=== PATIENT | male | born 1970 | race Caucasian/White ===

== ENCOUNTER 2018-06-14 16:03 | Inpatient (IN) | payer MEDICAID ==
[2018-06-14 17:15] LABS: ADD MAN DIFF? NO
[2018-06-14 17:18] LABS: WHITE BLOOD COUNT 6.3 10^3/ul (4.8-10.8)
[2018-06-14 17:18] LABS: ABNORMAL IP MESSAGE 1; BASOPHIL # 0.1 10^3/ul (0.0-0.1); EOSINOPHILS # 0.1 10^3/ul (0.0-0.5); EOSINOPHILS % 1.1 % (0.0-7.0); HEMATOCRIT 30.5 % (42.0-52.0); HEMOGLOBIN 10.4 g/dl (14.0-18.0); IMMATURE GRANS #M 0.02 10^3/ul; IMMATURE GRANS % (M) 0.3 %; LYMPHOCYTES # 0.5 10^3/ul (0.8-2.9); LYMPHOCYTES % 7.5 % (15.0-51.0); MEAN CORPUSCULAR HGB CONC 34.1 g/dl (32.0-37.0); MEAN PLATELET VOLUME 9.7 fl (7.4-10.4); MONOCYTE # 0.5 10^3/ul (0.3-0.9); MONOCYTES % 7.3 % (0.0-11.0); NEUTROPHIL # 5.2 10^3/ul (1.6-7.5); NEUTROPHILS % 82.8 % (39.0-77.0); PLATELET COUNT 212 10^3/UL (140-415); POSITIVE DIFF @See below; RED BLOOD COUNT 3.59 10^6/ul (4.70-6.10); RED CELL DISTRIBUTION WIDTH 13.5 % (11.5-14.5)
[2018-06-14] MEDS: ONDANSETRON 4 MG INJ IV (17:18)
[2018-06-14] MEDS: morphine 4 MG/ML VIAL IV (17:18)
[2018-06-14] MEDS: SOD CHLORIDE 0.9% 1,000 ML IV (17:18)
[2018-06-14] MEDS: DIPHTH/TET/ACEL PERTUSS (ADULT) 0.5 ML VIAL IM* (17:19)
[2018-06-14 17:36] LABS: ALANINE AMINOTRANSFERASE 21 IU/L (13-69); ALBUMIN 3.4 g/dl (3.3-4.9); ALBUMIN/GLOBULIN RATIO 1.17; ALKALINE PHOSPHATASE 144 IU/L (42-121); ANION GAP 13 (8-16); ASPARTATE AMINO TRANSFERASE 27 IU/L (15-46); BLOOD UREA NITROGEN 21 mg/dl (7-20); CALCIUM 8.6 mg/dl (8.4-10.2); CARBON DIOXIDE 25 mmol/L (21-31); CHLORIDE 107 mmol/L (97-110); CREATINE KINASE 189 IU/L (23-200); CREATININE 0.94 mg/dl (0.61-1.24); GLUCOSE 103 mg/dl (70-220); POTASSIUM 4.2 mmol/L (3.5-5.1); SODIUM 141 mmol/L (135-144); TOTAL PROTEIN 6.3 g/dl (6.1-8.1)
[2018-06-14 17:38] LABS: INR 0.97
[2018-06-14 17:39] LABS: PARTIAL THROMBOPLASTIN TIME 25.8 Sec (25.0-35.0)
[2018-06-14 17:47] LABS: B-TYPE NATRIURETIC PEPTIDE 279 PG/ML (0-125); CK INDEX 0.9; CK-MB 1.61 ng/ml (0.0-2.4); TROPONIN-I 0.051 ng/ml (0.000-0.120)
[2018-06-14] MEDS: LIDOCAINE 2%/EPI MPF (SDV) 20 ML VIAL INJ (17:54)
[2018-06-14] MEDS ORDERED: ACETAMINOPHEN 325 MG TAB PO (20:00)
[2018-06-14] MEDS ORDERED: ONDANSETRON 4 MG INJ IV (20:00)
[2018-06-15] MEDS ORDERED: ONDANSETRON 4 MG INJ IV (00:30)
[2018-06-15] MEDS ORDERED: GLUCOSE GEL 15 GRAM TUBE BUCCAL (00:30)
[2018-06-15] MEDS ORDERED: GLUCOSE GEL 15 GRAM TUBE PO ×2 (00:30)
[2018-06-15] MEDS ORDERED: GLUCAGON 1 MG INJ IM (00:30)
[2018-06-15] MEDS ORDERED: DEXTROSE 50% 50 ML SYRINGE IV ×2 (00:30)
[2018-06-15] MEDS: HYDROCODONE/APAP (5/325) TAB PO ×3 (00:38→17:27)
[2018-06-15] MEDS: ACETAMINOPHEN 325 MG TAB PO ×2 (00:39→20:36)
[2018-06-15] MEDS: ACCU-CHEK XX (01:34)
[2018-06-15] MEDS: SOD CHLORIDE 0.9% 250 ML IV (05:20)
[2018-06-15 07:24] LABS: ADD MAN DIFF? NO
[2018-06-15 07:26] LABS: WHITE BLOOD COUNT 4.8 10^3/ul (4.8-10.8)
[2018-06-15 07:26] LABS: BASOPHIL # 0.1 10^3/ul (0.0-0.1); BASOPHILS % 1.7 % (0.0-2.0); EOSINOPHILS # 0.1 10^3/ul (0.0-0.5); EOSINOPHILS % 2.5 % (0.0-7.0); HEMATOCRIT 28.1 % (42.0-52.0); LYMPHOCYTES # 0.9 10^3/ul (0.8-2.9); LYMPHOCYTES % 19.3 % (15.0-51.0); MEAN CORPUSCULAR HEMOGLOBIN 27.6 pg (29.0-33.0); MEAN CORPUSCULAR VOLUME 86.2 fl (82.0-101.0); MEAN PLATELET VOLUME 10.2 fl (7.4-10.4); MONOCYTE # 0.3 10^3/ul (0.3-0.9); MONOCYTES % 6.4 % (0.0-11.0); NEUTROPHIL # 3.4 10^3/ul (1.6-7.5); NEUTROPHILS % 69.7 % (39.0-77.0); PLATELET COUNT 184 10^3/UL (140-415); RED BLOOD COUNT 3.26 10^6/ul (4.70-6.10); RED CELL DISTRIBUTION WIDTH 13.7 % (11.5-14.5)
[2018-06-15 07:53] LABS: ALANINE AMINOTRANSFERASE 19 IU/L (13-69); ALBUMIN 2.8 g/dl (3.3-4.9); ALBUMIN/GLOBULIN RATIO 0.96; ALKALINE PHOSPHATASE 113 IU/L (42-121); ANION GAP 9 (8-16); ASPARTATE AMINO TRANSFERASE 19 IU/L (15-46); BILIRUBIN,INDIRECT 0.8 mg/dl (0-1.1); BILIRUBIN,TOTAL 0.8 mg/dl (0.2-1.3); BLOOD UREA NITROGEN 19 mg/dl (7-20); CALCIUM 7.8 mg/dl (8.4-10.2); CARBON DIOXIDE 27 mmol/L (21-31); CHLORIDE 107 mmol/L (97-110); CREATININE 0.95 mg/dl (0.61-1.24); GLUCOSE 123 mg/dl (70-220); POTASSIUM 4.2 mmol/L (3.5-5.1); SODIUM 139 mmol/L (135-144); TOTAL PROTEIN 5.7 g/dl (6.1-8.1)
[2018-06-15 07:55] LABS: HEMOGLOBIN A1C 9.4 % (0-5.9)
[2018-06-15] MEDS: INSULIN ASPART [NOVOLOG] 3 ML PEN SC ×6 (07:55→20:35)
[2018-06-15 08:44] LABS: HIV 1&2 ANTIBODY NEGATIVE (NEGATIVE)
[2018-06-15] MEDS: ENOXAPARIN 40 MG/0.4 ML SYG SC (08:52)
[2018-06-15] MEDS ORDERED: VANCOMYCIN IV PER PHARMACY XX (11:00)
[2018-06-15] MEDS ORDERED: NICOTINE (7 MG/24 HR) PATCH TRANSDERM (11:30)
[2018-06-15] MEDS: SOD CHLORIDE 0.9% 1,000 ML IV (11:30)
[2018-06-15] MEDS: PANTOPRAZOLE (EC) 40 MG TAB PO (12:05)
[2018-06-15] MEDS: PIPER-TAZO 3.375 GM IV (PMX) 100 ML IVPB ×3 (12:05→23:35)
[2018-06-15 12:33] LABS: ERYTHROCYTE SEDIMENTATION RATE 20 mm/Hr (0-15)
[2018-06-15 12:39] LABS: ADD UMIC YES; UR ASCORBIC ACID NEGATIVE (NEGATIVE); UR BACTERIA FEW /HPF (NONE SEEN); UR BILIRUBIN (Dip) NEGATIVE (NEGATIVE); UR BLOOD (Dip) NEGATIVE (NEGATIVE); UR CLARITY CLEAR (CLEAR); UR COLOR YELLOW (YELLOW); UR GLUCOSE (Dip) 1+ mg/dL (NEGATIVE); UR KETONES (Dip) 1+ mg/dL (NEGATIVE); UR LEUKOCYTE ESTERASE (Dip) NEGATIVE Leu/ul (NEGATIVE); UR NITRITE (Dip) NEGATIVE (NEGATIVE); UR RBC 1 /HPF (0-5); UR SPECIFIC GRAVITY (Dip) 1.021 (1.003-1.030); UR TOTAL PROTEIN (Dip) 1+ mg/dl (NEGATIVE); UR UROBILINOGEN (Dip) 1+ mg/dL (NEGATIVE); UR WBC 2 /HPF (0-5)
[2018-06-15 12:42] LABS: C-REACTIVE PROTEIN 6.6 mg/dl (0.0-0.9)
[2018-06-15] MEDS: VANCOMYCIN 1.5 GM in SOD CHLORIDE 0.9% 250 ML IVPB (16:48)
[2018-06-15] MEDS ORDERED: VANCOMYCIN 1 GM 250 ML IVPB (19:00)
[2018-06-15] MEDS: GABAPENTIN 300 MG CAP PO (20:35)
[2018-06-15] MEDS: DOCUSATE SODIUM 100 MG CAP PO (20:35)
[2018-06-15] MEDS: INSULIN GLARGINE [LANTus] (100 UNITS/ML) SYG SC (20:42)
[2018-06-16] MEDS: ACCU-CHEK XX (02:00)
[2018-06-16] MEDS: PANTOPRAZOLE (EC) 40 MG TAB PO (06:20)
[2018-06-16] MEDS: PIPER-TAZO 3.375 GM IV (PMX) 100 ML IVPB ×2 (06:20→12:08)
[2018-06-16 06:52] LABS: ADD MAN DIFF? NO
[2018-06-16 07:02] LABS: BASOPHIL # 0.1 10^3/ul (0.0-0.1); BASOPHILS % 1.2 % (0.0-2.0); EOSINOPHILS # 0.2 10^3/ul (0.0-0.5); EOSINOPHILS % 4.5 % (0.0-7.0); LYMPHOCYTES # 1.1 10^3/ul (0.8-2.9); LYMPHOCYTES % 23.1 % (15.0-51.0); MEAN CORPUSCULAR HEMOGLOBIN 27.9 pg (29.0-33.0); MEAN CORPUSCULAR HGB CONC 32.1 g/dl (32.0-37.0); MEAN CORPUSCULAR VOLUME 86.7 fl (82.0-101.0); MEAN PLATELET VOLUME 10.5 fl (7.4-10.4); MONOCYTE # 0.6 10^3/ul (0.3-0.9); MONOCYTES % 11.1 % (0.0-11.0); NEUTROPHILS % 59.7 % (39.0-77.0); PLATELET COUNT 196 10^3/UL (140-415); RED BLOOD COUNT 3.23 10^6/ul (4.70-6.10); RED CELL DISTRIBUTION WIDTH 13.7 % (11.5-14.5)
[2018-06-16 07:02] LABS: WHITE BLOOD COUNT 4.9 10^3/ul (4.8-10.8)
[2018-06-16 07:33] LABS: ANION GAP 9 (8-16); BLOOD UREA NITROGEN 16 mg/dl (7-20); CALCIUM 8.1 mg/dl (8.4-10.2); CARBON DIOXIDE 28 mmol/L (21-31); CHLORIDE 105 mmol/L (97-110); CREATININE 0.94 mg/dl (0.61-1.24); GLUCOSE 156 mg/dl (70-220); MAGNESIUM 1.9 mg/dl (1.7-2.5); PHOSPHORUS 2.8 mg/dl (2.5-4.9); SODIUM 138 mmol/L (135-144)
[2018-06-16] MEDS: VANCOMYCIN 1 GM 250 ML IVPB (07:40)
[2018-06-16] MEDS: INSULIN ASPART [NOVOLOG] 3 ML PEN SC ×7 (08:13→21:00)
[2018-06-16] MEDS: DOCUSATE SODIUM 100 MG CAP PO ×2 (09:43→21:32)
[2018-06-16] MEDS: GABAPENTIN 300 MG CAP PO ×3 (09:43→21:32)
[2018-06-16] MEDS: ENOXAPARIN 40 MG/0.4 ML SYG SC (09:46)
[2018-06-16] MEDS: HYDROCODONE/APAP (5/325) TAB PO ×2 (09:48→17:55)
[2018-06-16] MEDS: SOD CHLORIDE 0.9% 1,000 ML IV (12:10)
[2018-06-16] MEDS: LORAZEPAM 2 MG INJ IV (19:20)
[2018-06-16] MEDS: INSULIN GLARGINE [LANTus] (100 UNITS/ML) SYG SC (23:14)
[2018-06-17] MEDS: ACCU-CHEK XX (02:24)
[2018-06-17] MEDS: PANTOPRAZOLE (EC) 40 MG TAB PO (06:08)
[2018-06-17 08:05] LABS: ADD MAN DIFF? NO
[2018-06-17 08:11] LABS: WHITE BLOOD COUNT 4.1 10^3/ul (4.8-10.8)
[2018-06-17 08:11] LABS: BASOPHIL # 0.1 10^3/ul (0.0-0.1); BASOPHILS % 1.5 % (0.0-2.0); EOSINOPHILS # 0.2 10^3/ul (0.0-0.5); EOSINOPHILS % 5.1 % (0.0-7.0); HEMATOCRIT 28.5 % (42.0-52.0); HEMOGLOBIN 9.2 g/dl (14.0-18.0); LYMPHOCYTES # 1.2 10^3/ul (0.8-2.9); MEAN CORPUSCULAR HEMOGLOBIN 27.7 pg (29.0-33.0); MEAN CORPUSCULAR HGB CONC 32.3 g/dl (32.0-37.0); MEAN CORPUSCULAR VOLUME 85.8 fl (82.0-101.0); MEAN PLATELET VOLUME 10.6 fl (7.4-10.4); MONOCYTE # 0.6 10^3/ul (0.3-0.9); MONOCYTES % 14.6 % (0.0-11.0); NEUTROPHILS % 49.3 % (39.0-77.0); PLATELET COUNT 224 10^3/UL (140-415); RED BLOOD COUNT 3.32 10^6/ul (4.70-6.10); RED CELL DISTRIBUTION WIDTH 13.5 % (11.5-14.5)
[2018-06-17] MEDS: INSULIN ASPART [NOVOLOG] 3 ML PEN SC ×7 (08:14→23:14)
[2018-06-17 08:33] LABS: ANION GAP 10 (8-16); BLOOD UREA NITROGEN 11 mg/dl (7-20); CALCIUM 8.2 mg/dl (8.4-10.2); CARBON DIOXIDE 28 mmol/L (21-31); CHLORIDE 105 mmol/L (97-110); CREATININE 0.82 mg/dl (0.61-1.24); GLUCOSE 250 mg/dl (70-220); MAGNESIUM 1.8 mg/dl (1.7-2.5); POTASSIUM 4.1 mmol/L (3.5-5.1); SODIUM 139 mmol/L (135-144)
[2018-06-17] MEDS: GABAPENTIN 300 MG CAP PO ×3 (09:00→21:00)
[2018-06-17] MEDS: DOCUSATE SODIUM 100 MG CAP PO ×2 (09:00→21:00)
[2018-06-17] MEDS: ENOXAPARIN 40 MG/0.4 ML SYG SC (09:00)
[2018-06-17 10:27] LABS: IMMEDIATE SPIN CROSSMATCH 1 2
[2018-06-17] MEDS ORDERED: SOD CHLORIDE 0.45% 1,000 ML IV (10:30)
[2018-06-17] MEDS: LABETALOL HCL 20MG INJ IV (10:44)
[2018-06-17] MEDS: hydrALAzine 20 MG INJ IV (13:37)
[2018-06-17] MEDS ORDERED: morphine SULFATE/PF (10 MG/10 ML) INJ (17:27)
[2018-06-17] MEDS ORDERED: MIDAZOLAM 1 MG/ML 2 ML INJ (17:28)
[2018-06-17] MEDS ORDERED: ROPIVACAINE 0.5 % 30 ML VIAL (17:28)
[2018-06-17] MEDS ORDERED: BUPIVACAINE 0.75%/DEXT (SPINAL) 2 ML INJ (17:40)
[2018-06-17] MEDS ORDERED: METOCLOPRAMIDE 10 MG INJ (17:55)
[2018-06-17] MEDS ORDERED: POLYMYXIN/BACITRACIN 1L IRRIG (18:40)
[2018-06-17] MEDS: POLYMYXIN/BACITRACIN 1L IRRIG IRR (18:44)
[2018-06-17] MEDS ORDERED: PROPOFOL 80 ML (19:29)
[2018-06-17] MEDS ORDERED: CEFAZOLIN 1 GM INJ (19:29)
[2018-06-17] MEDS ORDERED: ONDANSETRON 4 MG INJ IV (19:30)
[2018-06-17] MEDS ORDERED: MEPERIDINE 25 MG INJ IV (19:30)
[2018-06-17] MEDS ORDERED: HYDROmorphONE 1 MG/5 ML IV SYRINGE IV ×3 (19:30)
[2018-06-17] MEDS ORDERED: ONDANSETRON 4 MG INJ (20:36)
[2018-06-17] MEDS ORDERED: KETOROLAC 30 MG INJ (20:36)
[2018-06-17] MEDS ORDERED: PHENYLephrine (100 MCG/ML) 5ML SYG (20:51)
[2018-06-17] MEDS ORDERED: EPHEDrine SULFATE 50 MG/5 ML SYG (21:24)
[2018-06-17] MEDS ORDERED: HYDROCODONE/APAP (5/325) TAB PO (22:00)
[2018-06-17] MEDS ORDERED: morphine 2 MG INJ IV (22:00)
[2018-06-17] MEDS ORDERED: NALOXONE (0.4 MG/ML) INJ IV (22:00)
[2018-06-17] MEDS: DIPHENHYDRAMINE 50 MG INJ IV ×2 (22:09→22:39)
[2018-06-17] MEDS: CEFAZOLIN 1 GM/50 ML (PMX) 50 ML IVPB (23:03)
[2018-06-17] MEDS: SOD CHLORIDE 0.9% 1,000 ML IV (23:06)
[2018-06-17] MEDS: INSULIN GLARGINE [LANTus] (100 UNITS/ML) SYG SC (23:14)
[2018-06-18] MEDS: ACCU-CHEK XX (02:00)
[2018-06-18] MEDS: PANTOPRAZOLE (EC) 40 MG TAB PO (05:29)
[2018-06-18] MEDS: CEFAZOLIN 1 GM/50 ML (PMX) 50 ML IVPB ×2 (05:29→13:47)
[2018-06-18] MEDS: INSULIN ASPART [NOVOLOG] 3 ML PEN SC ×7 (08:04→20:40)
[2018-06-18] MEDS: GABAPENTIN 300 MG CAP PO ×3 (08:43→20:53)
[2018-06-18] MEDS: DOCUSATE SODIUM 100 MG CAP PO ×2 (08:43→20:53)
[2018-06-18] MEDS: LABETALOL HCL 20MG INJ IV (08:43)
[2018-06-18] MEDS: ENOXAPARIN 40 MG/0.4 ML SYG SC (08:47)
[2018-06-18] MEDS ORDERED: ENOXAPARIN 40 MG/0.4 ML SYG SC (09:00)
[2018-06-18] MEDS: morphine 2 MG INJ IV ×2 (14:05→18:47)
[2018-06-18] MEDS: INSULIN GLARGINE [LANTus] (100 UNITS/ML) SYG SC (20:52)
[2018-06-18] MEDS: ACETAMINOPHEN 325 MG TAB PO (20:53)
[2018-06-19] MEDS: HYDROCODONE/APAP (5/325) TAB PO (01:45)
[2018-06-19 01:57] LABS: ADD UMIC YES; UR ASCORBIC ACID NEGATIVE (NEGATIVE); UR BACTERIA FEW /HPF (NONE SEEN); UR BILIRUBIN (Dip) NEGATIVE (NEGATIVE); UR BLOOD (Dip) 1+ mg/dL (NEGATIVE); UR CLARITY CLEAR (CLEAR); UR COLOR YELLOW (YELLOW); UR GLUCOSE (Dip) 3+ mg/dL (NEGATIVE); UR KETONES (Dip) TRACE mg/dL (NEGATIVE); UR LEUKOCYTE ESTERASE (Dip) NEGATIVE Leu/ul (NEGATIVE); UR NITRITE (Dip) NEGATIVE (NEGATIVE); UR RBC 9 /HPF (0-5); UR SPECIFIC GRAVITY (Dip) 1.013 (1.003-1.030); UR TOTAL PROTEIN (Dip) NEGATIVE (NEGATIVE); UR UROBILINOGEN (Dip) 1+ mg/dL (NEGATIVE); UR WBC 3 /HPF (0-5)
[2018-06-19] MEDS: ACCU-CHEK XX (02:00)
[2018-06-19] MEDS: ACETAMINOPHEN 325 MG TAB PO ×2 (02:31→16:20)
[2018-06-19] MEDS: PANTOPRAZOLE (EC) 40 MG TAB PO (06:13)
[2018-06-19 07:13] LABS: ADD MAN DIFF? NO
[2018-06-19 07:19] LABS: BASOPHIL # 0.1 10^3/ul (0.0-0.1); BASOPHILS % 0.7 % (0.0-2.0); EOSINOPHILS # 0.1 10^3/ul (0.0-0.5); HEMOGLOBIN 8.9 g/dl (14.0-18.0); LYMPHOCYTES # 1.2 10^3/ul (0.8-2.9); MEAN CORPUSCULAR HEMOGLOBIN 28.5 pg (29.0-33.0); MEAN CORPUSCULAR VOLUME 86.5 fl (82.0-101.0); MEAN PLATELET VOLUME 10.3 fl (7.4-10.4); MONOCYTE # 0.7 10^3/ul (0.3-0.9); MONOCYTES % 10.3 % (0.0-11.0); NEUTROPHIL # 4.9 10^3/ul (1.6-7.5); NEUTROPHILS % 70.6 % (39.0-77.0); PLATELET COUNT 228 10^3/UL (140-415); RED BLOOD COUNT 3.12 10^6/ul (4.70-6.10)
[2018-06-19 07:19] LABS: WHITE BLOOD COUNT 6.9 10^3/ul (4.8-10.8)
[2018-06-19 07:40] LABS: ANION GAP 10 (8-16); BLOOD UREA NITROGEN 11 mg/dl (7-20); CALCIUM 7.8 mg/dl (8.4-10.2); CARBON DIOXIDE 25 mmol/L (21-31); CHLORIDE 104 mmol/L (97-110); CREATININE 0.81 mg/dl (0.61-1.24); GLUCOSE 200 mg/dl (70-220); POTASSIUM 3.9 mmol/L (3.5-5.1); SODIUM 135 mmol/L (135-144)
[2018-06-19] MEDS: INSULIN ASPART [NOVOLOG] 3 ML PEN SC ×7 (08:32→20:33)
[2018-06-19] MEDS: DOCUSATE SODIUM 100 MG CAP PO ×2 (08:33→20:34)
[2018-06-19] MEDS: GABAPENTIN 300 MG CAP PO ×3 (08:34→21:41)
[2018-06-19] MEDS: ENOXAPARIN 40 MG/0.4 ML SYG SC (09:05)
[2018-06-19] MEDS: INSULIN GLARGINE [LANTus] (100 UNITS/ML) SYG SC (21:45)
[2018-06-20] MEDS: ACCU-CHEK XX (02:00)
[2018-06-20] MEDS: PANTOPRAZOLE (EC) 40 MG TAB PO (05:05)
[2018-06-20] MEDS: INSULIN ASPART [NOVOLOG] 3 ML PEN SC ×7 (07:43→21:00)
[2018-06-20] MEDS: ENOXAPARIN 40 MG/0.4 ML SYG SC (08:08)
[2018-06-20] MEDS: DOCUSATE SODIUM 100 MG CAP PO ×2 (08:14→21:00)
[2018-06-20] MEDS: GABAPENTIN 300 MG CAP PO ×3 (08:14→21:06)
[2018-06-20] MEDS: HYDROCODONE/APAP (5/325) TAB PO (21:06)
[2018-06-20] MEDS: INSULIN GLARGINE [LANTus] (100 UNITS/ML) SYG SC (21:12)
[2018-06-21] MEDS: ACCU-CHEK XX (00:37)
[2018-06-21] MEDS: PANTOPRAZOLE (EC) 40 MG TAB PO (06:44)
[2018-06-21] MEDS: INSULIN ASPART [NOVOLOG] 3 ML PEN SC ×8 (07:40→21:00)
[2018-06-21] MEDS: GABAPENTIN 300 MG CAP PO ×3 (08:01→21:55)
[2018-06-21] MEDS: DOCUSATE SODIUM 100 MG CAP PO ×2 (08:01→21:55)
[2018-06-21] MEDS: ENOXAPARIN 40 MG/0.4 ML SYG SC (08:06)
[2018-06-21] MEDS: INSULIN GLARGINE [LANTus] (100 UNITS/ML) SYG SC (22:00)
[2018-06-22] MEDS: HYDROCODONE/APAP (5/325) TAB PO ×3 (01:09→21:54)
[2018-06-22] MEDS: ACCU-CHEK XX (02:00)
[2018-06-22] MEDS: PANTOPRAZOLE (EC) 40 MG TAB PO (05:17)
[2018-06-22] MEDS: DOCUSATE SODIUM 100 MG CAP PO ×2 (08:40→21:54)
[2018-06-22] MEDS: GABAPENTIN 300 MG CAP PO ×3 (08:40→21:54)
[2018-06-22] MEDS: ENOXAPARIN 40 MG/0.4 ML SYG SC (08:43)
[2018-06-22] MEDS: INSULIN ASPART [NOVOLOG] 3 ML PEN SC ×7 (08:44→21:00)
[2018-06-22] MEDS: INSULIN GLARGINE [LANTus] (100 UNITS/ML) SYG SC ×2 (20:00→22:16)
[2018-06-23] MEDS: ACCU-CHEK XX (02:00)
[2018-06-23] MEDS: PANTOPRAZOLE (EC) 40 MG TAB PO (05:40)
[2018-06-23] MEDS: INSULIN ASPART [NOVOLOG] 3 ML PEN SC ×6 (07:50→17:50)
[2018-06-23] MEDS: GABAPENTIN 300 MG CAP PO ×3 (08:17→20:17)
[2018-06-23] MEDS: DOCUSATE SODIUM 100 MG CAP PO ×2 (08:17→20:17)
[2018-06-23] MEDS: ENOXAPARIN 40 MG/0.4 ML SYG SC (08:18)
[2018-06-23] MEDS: INSULIN GLARGINE [LANTus] (100 UNITS/ML) SYG SC (20:16)
== END 2018-06-23 20:30 | disposition home or self-care (01) | DRG 488 ==
LOC: MS1 06-21 23:34 → E/R 16:03 → TEL 19:50
PROC: 0QSG04Z Reposition Right Tibia with Internal Fixation Device, Open Approach (ICD-10-PCS; principal; 2018-06-17 14:30)
PROC: 0SQC0ZZ Repair Right Knee Joint, Open Approach (ICD-10-PCS; 2018-06-17 14:30)
PROC: 0QUG0KZ Supplement Right Tibia with Nonautologous Tissue Substitute, Open Approach (ICD-10-PCS; 2018-06-17 14:30)
DX: S82.144A Nondisplaced bicondylar fracture of right tibia, initial encounter for closed fracture (principal); M86.9 Osteomyelitis, unspecified; A52.16 Charcot's arthropathy (tabetic); S92.062A Displaced intraarticular fracture of left calcaneus, initial encounter for closed fracture; M21.372 Foot drop, left foot; W19.XXXA Unspecified fall, initial encounter; E10.9 Type 1 diabetes mellitus without complications; Z59.0 Homelessness; R55 Syncope and collapse; Z79.4 Long term (current) use of insulin
CPT/HCPCS: 36430; 70450; 71045; 73560; 73562; 73590; 73630-LT; 73700; 73718; 73721; 80048; 80053; 81001; 82550; 82553; 82962; 83036; 83735; 83880; 84100; 84484; 85025; 85610; 85651; 85730; 86140; 86703; 86850; 86900; 86901; 86920; 87040; 87070; 87075; 87086; 90471; 90715; 92526; 92610; 93005; 93306; 93970; 93971; 96374; 96375; 97110; 97116; 97161; 97530; 99285-25

== ENCOUNTER 2019-04-07 11:51 | Inpatient (IN) | payer OTHER ==
[~2019-04-07 11:51] MED LIST: SEVOFLURANE 15 MIN
[2019-04-07] MEDS: DEXTROSE 5%-0.45% NACL 1,000 ML IV ×2 (13:50→22:20)
[2019-04-07] MEDS ORDERED: morphine SULFATE/PF (10 MG/10 ML) INJ (14:10)
[2019-04-07] MEDS ORDERED: ROCURONIUM 50 MG INJ (14:14)
[2019-04-07] MEDS ORDERED: LIDOCAINE 2% (SDV) 5 ML INJ (14:14)
[2019-04-07] MEDS ORDERED: PROPOFOL 20 ML (14:14)
[2019-04-07] MEDS ORDERED: POLYMYXIN/BACITRACIN 1L IRRIG (14:14)
[2019-04-07] MEDS ORDERED: TRANEXAMIC ACID 1GM/100ML(PMX) 200 ML (14:14)
[2019-04-07] MEDS ORDERED: FENTAnyl 50 MCG/ML VIAL (14:16)
[2019-04-07] MEDS ORDERED: MIDAZOLAM 1 MG/ML 2 ML INJ (14:27)
[2019-04-07] MEDS: CEFAZOLIN 1 GM/NS 50 ML X 1 IVPB (14:30)
[2019-04-07] MEDS ORDERED: NEOMYC/POLYMYX/BACIT 30 GM OINT (14:54)
[2019-04-07] MEDS: POLYMYXIN/BACITRACIN 1L IRRIG IRR (15:10)
[2019-04-07] MEDS ORDERED: DEXAMETHASONE 4 MG/ML 5 ML INJ (16:08)
[2019-04-07] MEDS ORDERED: ONDANSETRON 4 MG INJ (16:09)
[2019-04-07] MEDS ORDERED: CEFAZOLIN 1 GM INJ (16:09)
[2019-04-07] MEDS ORDERED: NEOSTIGMINE 3 MG/3 ML SYRINGE (16:36)
[2019-04-07] MEDS ORDERED: GLYCOPYRROLATE 0.4 MG INJ (16:36)
[2019-04-07] MEDS ORDERED: MEPERIDINE 25 MG INJ IV (17:00)
[2019-04-07] MEDS ORDERED: FENTAnyl 50 MCG/ML VIAL IV ×3 (17:00)
[2019-04-07] MEDS ORDERED: KETOROLAC 30 MG INJ IV (17:00)
[2019-04-07] MEDS ORDERED: ALBUTEROL 0.083% (NEB) 2.5 MG/3 ML AMP HHN (17:00)
[2019-04-07] MEDS ORDERED: LABETALOL HCL 20MG INJ IV (17:00)
[2019-04-07] MEDS ORDERED: METOCLOPRAMIDE 10 MG INJ IV (17:00)
[2019-04-07] MEDS ORDERED: EPHEDrine 25 MG/5 ML SYG IV (17:00)
[2019-04-07] MEDS ORDERED: MIDAZOLAM 1 MG/ML 2 ML INJ IV (17:00)
[2019-04-07] MEDS ORDERED: DIPHENHYDRAMINE 50 MG INJ IV (17:00)
[2019-04-07] MEDS ORDERED: HYDROmorphONE 1 MG/5 ML IV SYRINGE IV ×3 (17:00)
[2019-04-07] MEDS ORDERED: hydrALAzine 20 MG INJ IV (17:00)
[2019-04-07] MEDS ORDERED: HYDROmorphONE 0.5 MG/0.5 ML SYG IV (17:30)
[2019-04-07] MEDS ORDERED: GLUCAGON 1 MG INJ IM (18:30)
[2019-04-07] MEDS ORDERED: DEXTROSE 50% 50 ML SYRINGE IV ×2 (18:30)
[2019-04-07] MEDS ORDERED: GLUCOSE GEL 15 GRAM TUBE PO ×2 (18:30)
[2019-04-07] MEDS ORDERED: GLUCOSE GEL 15 GRAM TUBE BUCCAL (18:30)
[2019-04-07] MEDS: ONDANSETRON 4 MG INJ IV ×2 (18:40→22:03)
[2019-04-07] MEDS: ASPIRIN (EC) 325 MG TAB PO (18:46)
[2019-04-07] MEDS: INSULIN ASPART [NOVOLOG] 3 ML PEN SC ×2 (19:30→21:00)
[2019-04-07] MEDS: SOD CHLORIDE 0.9% 1,000 ML IV (20:13)
[2019-04-07] MEDS: ACCU-CHEK XX (21:00)
[2019-04-07] MEDS: GABAPENTIN 300 MG CAP PO (21:47)
[2019-04-07] MEDS: CEFAZOLIN 1 GM/50 ML (PMX) 50 ML IVPB (21:49)
[2019-04-07 22:56] LABS: INR 1.05; PROTIME 13.8 Sec (11.9-14.9); PT RATIO 1.1
[2019-04-08] MEDS: SOD CHLORIDE 0.9% 1,000 ML IV ×2 (04:37→17:08)
[2019-04-08] MEDS: CEFAZOLIN 1 GM/50 ML (PMX) 50 ML IVPB ×3 (06:09→21:54)
[2019-04-08] MEDS: DEXTROSE 5%-0.45% NACL 1,000 ML IV (06:40)
[2019-04-08] MEDS: ACCU-CHEK XX ×4 (07:20→21:00)
[2019-04-08] MEDS: GABAPENTIN 300 MG CAP PO ×3 (08:25→19:37)
[2019-04-08] MEDS: ASPIRIN (EC) 325 MG TAB PO ×2 (08:25→17:08)
[2019-04-08] MEDS: INSULIN ASPART [NOVOLOG] 3 ML PEN SC ×4 (08:28→21:00)
[2019-04-08 10:34] LABS: HEMATOCRIT 28.9 % (42.0-52.0); HEMOGLOBIN 9.3 g/dl (14.0-18.0)
[2019-04-08] MEDS: HYDROCODONE/APAP (10/325) TAB PO (19:37)
[2019-04-08 19:51] LABS: ADD UMIC YES; UR ASCORBIC ACID NEGATIVE (NEGATIVE); UR BACTERIA FEW /HPF (NONE SEEN); UR BILIRUBIN (Dip) NEGATIVE (NEGATIVE); UR BLOOD (Dip) 2+ mg/dL (NEGATIVE); UR CLARITY TURBID (CLEAR); UR COLOR AMBER (YELLOW); UR GLUCOSE (Dip) 2+ mg/dL (NEGATIVE); UR KETONES (Dip) NEGATIVE (NEGATIVE); UR LEUKOCYTE ESTERASE (Dip) 3+ Leu/ul (NEGATIVE); UR NITRITE (Dip) NEGATIVE (NEGATIVE); UR RBC 49 /HPF (0-5); UR TOTAL PROTEIN (Dip) 2+ mg/dl (NEGATIVE); UR UROBILINOGEN (Dip) NEGATIVE (NEGATIVE); UR WBC > 182 /HPF (0-5)
[2019-04-09] MEDS: HYDROCODONE/APAP (10/325) TAB PO ×2 (02:02→08:27)
[2019-04-09 05:15] LABS: ADD MAN DIFF? NO
[2019-04-09 05:22] LABS: WHITE BLOOD COUNT 5.3 10^3/ul (4.8-10.8)
[2019-04-09 05:22] LABS: BASOPHIL # 0.1 10^3/ul (0.0-0.1); BASOPHILS % 1.1 % (0.0-2.0); EOSINOPHILS # 0.1 10^3/ul (0.0-0.5); EOSINOPHILS % 2.3 % (0.0-7.0); HEMATOCRIT 25.1 % (42.0-52.0); LYMPHOCYTES # 1.3 10^3/ul (0.8-2.9); LYMPHOCYTES % 24.3 % (15.0-51.0); MEAN CORPUSCULAR HEMOGLOBIN 28.7 pg (29.0-33.0); MEAN CORPUSCULAR HGB CONC 31.9 g/dl (32.0-37.0); MEAN PLATELET VOLUME 10.3 fl (7.4-10.4); MONOCYTE # 0.7 10^3/ul (0.3-0.9); MONOCYTES % 12.3 % (0.0-11.0); NEUTROPHIL # 3.1 10^3/ul (1.6-7.5); NEUTROPHILS % 59.6 % (39.0-77.0); PLATELET COUNT 167 10^3/UL (140-415); RED BLOOD COUNT 2.79 10^6/ul (4.70-6.10); RED CELL DISTRIBUTION WIDTH 13.3 % (11.5-14.5)
[2019-04-09] MEDS: CEFAZOLIN 1 GM/50 ML (PMX) 50 ML IVPB ×3 (05:35→21:43)
[2019-04-09 06:09] LABS: ALANINE AMINOTRANSFERASE 26 IU/L (13-69); ALBUMIN 2.7 g/dl (3.3-4.9); ALBUMIN/GLOBULIN RATIO 1.08; ALKALINE PHOSPHATASE 83 IU/L (42-121); ANION GAP 3 (5-13); ASPARTATE AMINO TRANSFERASE 27 IU/L (15-46); BILIRUBIN,INDIRECT 0.5 mg/dl (0-1.1); BILIRUBIN,TOTAL 0.5 mg/dl (0.2-1.3); BLOOD UREA NITROGEN 28 mg/dl (7-20); CALCIUM 7.7 mg/dl (8.4-10.2); CARBON DIOXIDE 26 mmol/L (21-31); CHLORIDE 105 mmol/L (97-110); CREATININE 1.15 mg/dl (0.61-1.24); Estimated GFR > 60 mL/min (>60); GLUCOSE 205 mg/dl (70-220); POTASSIUM 4.5 mmol/L (3.5-5.1); SODIUM 134 mmol/L (135-144); TOTAL PROTEIN 5.2 g/dl (6.1-8.1)
[2019-04-09 06:27] LABS: PROSTATE SPECIFIC ANTIGEN 2.9 ng/ml (0.0-4.0)
[2019-04-09 06:33] LABS: IRON 24 ug/dl (35-150)
[2019-04-09 06:43] LABS: % IRON SATURATION 10 % SAT (22-52); TOTAL IRON BINDING CAPACITY 237 ug/dl (241-421)
[2019-04-09] MEDS: AMLODIPINE 5 MG TAB PO (08:29)
[2019-04-09] MEDS: GABAPENTIN 300 MG CAP PO ×3 (08:30→21:43)
[2019-04-09] MEDS: ACCU-CHEK XX ×4 (08:30→21:00)
[2019-04-09] MEDS: INSULIN ASPART [NOVOLOG] 3 ML PEN SC ×5 (08:34→21:48)
[2019-04-09 08:39] LABS: HEMOGLOBIN A1C 9.9 % (0-5.9)
[2019-04-09] MEDS: ASPIRIN (EC) 325 MG TAB PO ×2 (10:02→17:24)
[2019-04-09] MEDS: CALCIUM CARBONATE 1.25 GM TAB PO ×2 (11:50→21:43)
[2019-04-09] MEDS: LEVOFLOXACIN 500MG/D5W (PMX) 100 ML IVPB (11:50)
[2019-04-09] MEDS: FINASTERIDE 5 MG TAB PO (11:50)
[2019-04-09] MEDS: SOD FERRIC GLUC COMPLX 125 MG in SOD CHLORIDE 0.9% 100 ML IVPB (13:10)
[2019-04-09] MEDS: INSULIN GLARGINE [LANTus] (100 UNITS/ML) SYG SC (21:49)
[2019-04-09] MEDS ORDERED: CEFTRIAXONE 1 GM/50 ML (PMX) 50 ML IVPB (23:00)
[2019-04-09] MEDS: ACETAMINOPHEN 325 MG TAB PO (23:21)
[2019-04-10] MEDS: SOD CHLORIDE 0.9% 1,000 ML IV (02:14)
[2019-04-10 05:16] LABS: ADD MAN DIFF? NO
[2019-04-10 05:23] LABS: BASOPHIL # 0.1 10^3/ul (0.0-0.1); BASOPHILS % 1.5 % (0.0-2.0); EOSINOPHILS # 0.1 10^3/ul (0.0-0.5); EOSINOPHILS % 1.9 % (0.0-7.0); HEMATOCRIT 22.5 % (42.0-52.0); HEMOGLOBIN 7.2 g/dl (14.0-18.0); LYMPHOCYTES # 1.6 10^3/ul (0.8-2.9); LYMPHOCYTES % 30.7 % (15.0-51.0); MEAN CORPUSCULAR HEMOGLOBIN 28.5 pg (29.0-33.0); MEAN CORPUSCULAR VOLUME 88.9 fl (82.0-101.0); MEAN PLATELET VOLUME 10.5 fl (7.4-10.4); MONOCYTE # 0.6 10^3/ul (0.3-0.9); MONOCYTES % 12.1 % (0.0-11.0); NEUTROPHIL # 2.8 10^3/ul (1.6-7.5); NEUTROPHILS % 53.4 % (39.0-77.0); PLATELET COUNT 159 10^3/UL (140-415); RED BLOOD COUNT 2.53 10^6/ul (4.70-6.10); RED CELL DISTRIBUTION WIDTH 13.5 % (11.5-14.5)
[2019-04-10 05:23] LABS: WHITE BLOOD COUNT 5.3 10^3/ul (4.8-10.8)
[2019-04-10] MEDS: ACETAMINOPHEN 325 MG TAB PO (05:43)
[2019-04-10] MEDS: CEFAZOLIN 1 GM/50 ML (PMX) 50 ML IVPB (05:46)
[2019-04-10 05:52] LABS: ANION GAP 5 (5-13); BLOOD UREA NITROGEN 30 mg/dl (7-20); CARBON DIOXIDE 25 mmol/L (21-31); CHLORIDE 105 mmol/L (97-110); Estimated GFR > 60 mL/min (>60); GLUCOSE 202 mg/dl (70-220); POTASSIUM 4.2 mmol/L (3.5-5.1); SODIUM 135 mmol/L (135-144)
[2019-04-10] MEDS: ACCU-CHEK XX ×5 (08:20→21:00)
[2019-04-10] MEDS: CALCIUM CARBONATE 1.25 GM TAB PO ×2 (08:33→20:54)
[2019-04-10] MEDS: GABAPENTIN 300 MG CAP PO ×3 (08:34→20:54)
[2019-04-10] MEDS: ASPIRIN (EC) 325 MG TAB PO (08:34)
[2019-04-10] MEDS: AMLODIPINE 5 MG TAB PO (08:34)
[2019-04-10] MEDS: INSULIN ASPART [NOVOLOG] 3 ML PEN SC ×5 (08:37→21:17)
[2019-04-10] MEDS: LEVOFLOXACIN 500MG/D5W (PMX) 100 ML IVPB (11:07)
[2019-04-10] MEDS: SOD FERRIC GLUC COMPLX 125 MG in SOD CHLORIDE 0.9% 100 ML IVPB (13:00)
[2019-04-10] MEDS: INSULIN GLARGINE [LANTus] (100 UNITS/ML) SYG SC (20:57)
[2019-04-11] MEDS: ACETAMINOPHEN 325 MG TAB PO (04:58)
[2019-04-11 05:16] LABS: ADD MAN DIFF? NO
[2019-04-11 05:30] LABS: BASOPHILS % 0.9 % (0.0-2.0); EOSINOPHILS # 0.1 10^3/ul (0.0-0.5); HEMATOCRIT 22.6 % (42.0-52.0); HEMOGLOBIN 7.3 g/dl (14.0-18.0); LYMPHOCYTES # 1.2 10^3/ul (0.8-2.9); LYMPHOCYTES % 25.2 % (15.0-51.0); MEAN CORPUSCULAR HGB CONC 32.3 g/dl (32.0-37.0); MEAN CORPUSCULAR VOLUME 89.7 fl (82.0-101.0); MEAN PLATELET VOLUME 10.4 fl (7.4-10.4); MONOCYTE # 0.5 10^3/ul (0.3-0.9); MONOCYTES % 11.7 % (0.0-11.0); NEUTROPHIL # 2.7 10^3/ul (1.6-7.5); NEUTROPHILS % 58.8 % (39.0-77.0); PLATELET COUNT 176 10^3/UL (140-415); RED BLOOD COUNT 2.52 10^6/ul (4.70-6.10); RED CELL DISTRIBUTION WIDTH 13.5 % (11.5-14.5)
[2019-04-11 05:30] LABS: WHITE BLOOD COUNT 4.6 10^3/ul (4.8-10.8)
[2019-04-11] MEDS: ACCU-CHEK XX ×4 (07:20→21:15)
[2019-04-11] MEDS: AMLODIPINE 5 MG TAB PO (08:45)
[2019-04-11] MEDS: ASPIRIN (EC) 325 MG TAB PO (08:46)
[2019-04-11] MEDS: CALCIUM CARBONATE 1.25 GM TAB PO ×2 (08:46→21:15)
[2019-04-11] MEDS: GABAPENTIN 300 MG CAP PO ×3 (08:46→21:15)
[2019-04-11] MEDS: INSULIN ASPART [NOVOLOG] 3 ML PEN SC ×6 (08:48→21:00)
[2019-04-11] MEDS: LEVOFLOXACIN 500MG/D5W (PMX) 100 ML IVPB (11:25)
[2019-04-11] MEDS: SOD FERRIC GLUC COMPLX 125 MG in SOD CHLORIDE 0.9% 100 ML IVPB (12:55)
[2019-04-11 16:31] LABS: C-PEPTIDE 1.18 ng/mL (0.80-3.85)
[2019-04-11] MEDS: INSULIN GLARGINE [LANTus] (100 UNITS/ML) SYG SC (21:16)
[2019-04-12] MEDS: ACCU-CHEK XX ×6 (01:41→21:07)
[2019-04-12] MEDS: GABAPENTIN 300 MG CAP PO ×3 (08:43→20:54)
[2019-04-12] MEDS: CALCIUM CARBONATE 1.25 GM TAB PO ×2 (08:43→20:54)
[2019-04-12] MEDS: ASPIRIN (EC) 325 MG TAB PO (08:43)
[2019-04-12] MEDS: INSULIN ASPART [NOVOLOG] 3 ML PEN SC ×9 (08:44→21:05)
[2019-04-12] MEDS: AMLODIPINE 5 MG TAB PO (08:44)
[2019-04-12] MEDS: LEVOFLOXACIN 500MG/D5W (PMX) 100 ML IVPB (11:14)
[2019-04-12] MEDS: HYDROCODONE/APAP (10/325) TAB PO (21:00)
[2019-04-12] MEDS: INSULIN GLARGINE [LANTus] (100 UNITS/ML) SYG SC (21:06)
[2019-04-13] MEDS: ACCU-CHEK XX ×3 (02:36→13:14)
[2019-04-13] MEDS: INSULIN ASPART [NOVOLOG] 3 ML PEN SC ×4 (09:24→13:19)
[2019-04-13] MEDS: CALCIUM CARBONATE 1.25 GM TAB PO (09:25)
[2019-04-13] MEDS: AMLODIPINE 5 MG TAB PO (09:25)
[2019-04-13] MEDS: GABAPENTIN 300 MG CAP PO ×2 (09:25→13:14)
[2019-04-13] MEDS: ASPIRIN (EC) 325 MG TAB PO (09:25)
[2019-04-13] MEDS: LEVOFLOXACIN 500MG/D5W (PMX) 100 ML IVPB (11:40)
[2019-04-14] MEDS ORDERED: LEVOFLOXACIN 500 MG TAB PO (06:00)
== END 2019-04-13 16:40 | DRG 470 ==
LOC: REC 11:51 → MS1 19:26
PROVIDERS: Specialist
PROC: 0SRC069 Replacement of Right Knee Joint with Oxidized Zirconium on Polyethylene Synthetic Substitute, Cemented, Open Approach (ICD-10-PCS; principal; 2019-04-07 14:39)
PROC: 0QPG04Z Removal of Internal Fixation Device from Right Tibia, Open Approach (ICD-10-PCS; 2019-04-07 14:39)
DX: M17.31 Unilateral post-traumatic osteoarthritis, right knee (principal); D62 Acute posthemorrhagic anemia; N39.0 Urinary tract infection, site not specified; Z87.81 Personal history of (healed) traumatic fracture; Z47.2 Encounter for removal of internal fixation device; E10.9 Type 1 diabetes mellitus without complications; Z59.0 Homelessness; R30.0 Dysuria; I10 Essential (primary) hypertension; R80.9 Proteinuria, unspecified; E83.51 Hypocalcemia
CPT/HCPCS: 71045; 76856; 80048; 80053; 81001; 82962; 83036; 83540; 84153; 84154; 84681; 85014; 85018; 85025; 85610; 87040-91; 87086; 88300; 88304; 88311; 97110; 97116; 97161; 97530

== ENCOUNTER 2019-06-02 10:07 | Inpatient (IN) | payer OTHER ==
[2019-06-02] MEDS: EPINEPHrine 1 MG/ML 30 ML INJ IRR
[2019-06-02 12:15] LABS: ADD MAN DIFF? NO
[2019-06-02 12:18] LABS: BASOPHILS % 0.6 % (0.0-2.0); EOSINOPHILS % 0.4 % (0.0-7.0); HEMATOCRIT 34.7 % (42.0-52.0); LYMPHOCYTES # 0.8 10^3/ul (0.8-2.9); LYMPHOCYTES % 11.9 % (15.0-51.0); MEAN CORPUSCULAR HEMOGLOBIN 27.8 pg (29.0-33.0); MEAN CORPUSCULAR HGB CONC 31.7 g/dl (32.0-37.0); MEAN CORPUSCULAR VOLUME 87.8 fl (82.0-101.0); MONOCYTE # 0.6 10^3/ul (0.3-0.9); MONOCYTES % 8.2 % (0.0-11.0); NEUTROPHIL # 5.5 10^3/ul (1.6-7.5); NEUTROPHILS % 78.5 % (39.0-77.0); PLATELET COUNT 302 10^3/UL (140-415); RED BLOOD COUNT 3.95 10^6/ul (4.70-6.10); RED CELL DISTRIBUTION WIDTH 12.7 % (11.5-14.5)
[2019-06-02] MEDS: VANCOMYCIN 1 GM (PMX) 250 ML IVPB ×2 (12:21→20:18)
[2019-06-02 12:34] LABS: ALANINE AMINOTRANSFERASE 17 IU/L (13-69); ALBUMIN 3.8 g/dl (3.3-4.9); ALKALINE PHOSPHATASE 134 IU/L (42-121); ANION GAP 12 (5-13); ASPARTATE AMINO TRANSFERASE 19 IU/L (15-46); BILIRUBIN,INDIRECT 0.5 mg/dl (0-1.1); BILIRUBIN,TOTAL 0.5 mg/dl (0.2-1.3); CARBON DIOXIDE 23 mmol/L (21-31); CHLORIDE 104 mmol/L (97-110); Estimated GFR 55 mL/min (>60); GLUCOSE 217 mg/dl (70-220); SODIUM 139 mmol/L (135-144)
[2019-06-02 12:37] LABS: PROTIME 14.3 Sec (11.9-14.9); PT RATIO 1.1
[2019-06-02 12:45] LABS: BLOOD UREA NITROGEN 30 mg/dl (7-20); CREATININE 1.37 mg/dl (0.61-1.24); POTASSIUM 5.7 mmol/L (3.5-5.1)
[2019-06-02 12:55] LABS: PARTIAL THROMBOPLASTIN TIME 36.4 Sec (23.0-35.0)
[2019-06-02] MEDS ORDERED: VANCOMYCIN 500 MG (PMX) 100 ML IVPB (14:00)
[2019-06-02] MEDS ORDERED: FENTAnyl 50 MCG/ML VIAL (15:27)
[2019-06-02] MEDS ORDERED: MIDAZOLAM 1 MG/ML 2 ML INJ (15:27)
[2019-06-02] MEDS ORDERED: CEFAZOLIN 1 GM INJ (15:27)
[2019-06-02] MEDS ORDERED: ONDANSETRON 4 MG INJ IV ×2 (15:30→18:30)
[2019-06-02] MEDS ORDERED: hydrALAzine 20 MG INJ IV (15:30)
[2019-06-02] MEDS ORDERED: LABETALOL HCL 20MG INJ IV (15:30)
[2019-06-02] MEDS ORDERED: HYDROmorphONE 1 MG/5 ML IV SYRINGE IV (15:30)
[2019-06-02] MEDS ORDERED: FENTAnyl 50 MCG/ML VIAL IV ×2 (15:30)
[2019-06-02] MEDS ORDERED: LIDOCAINE 100 MG SYRINGE (16:02)
[2019-06-02] MEDS ORDERED: ROCURONIUM 50 MG INJ (16:02)
[2019-06-02] MEDS ORDERED: PROPOFOL 20 ML (16:02)
[2019-06-02] MEDS ORDERED: ONDANSETRON 4 MG INJ (16:02)
[2019-06-02] MEDS ORDERED: DEXAMETHASONE 4 MG/ML 5 ML INJ (16:03)
[2019-06-02] MEDS ORDERED: SUGAMMADEX SODIUM 200 MG/2 ML VIAL IV (16:03)
[2019-06-02] MEDS: HYDROmorphONE 1 MG/5 ML IV SYRINGE IV (17:15)
[2019-06-02] MEDS: METOCLOPRAMIDE 10 MG INJ IV (17:15)
[2019-06-02] MEDS ORDERED: HYDROCODONE/APAP (10/325) TAB PO ×2 (17:30→18:00)
[2019-06-02] MEDS ORDERED: morphine 2 MG INJ IV (17:30)
[2019-06-02] MEDS ORDERED: GLUCOSE GEL 15 GRAM TUBE PO ×2 (19:00)
[2019-06-02] MEDS ORDERED: GLUCOSE GEL 15 GRAM TUBE BUCCAL (19:00)
[2019-06-02] MEDS ORDERED: GLUCAGON 1 MG INJ IM (19:00)
[2019-06-02] MEDS ORDERED: DEXTROSE 50% 50 ML SYRINGE IV ×2 (19:00)
[2019-06-02] MEDS: INSULIN ASPART [NOVOLOG] 3 ML PEN SC (20:43)
[2019-06-02] MEDS: INSULIN GLARGINE [LANTus] (100 UNITS/ML) SYG SC (21:56)
[2019-06-03] MEDS: NA POLYST SULFON 15 GM/60 ML BTL PO (00:15)
[2019-06-03] MEDS: MAGNESIUM HYDROXIDE 30ML CUP PO (00:15)
[2019-06-03] MEDS: INSULIN ASPART [NOVOLOG] 3 ML PEN SC ×6 (02:48→21:00)
[2019-06-03] MEDS: VANCOMYCIN 1 GM (PMX) 250 ML IVPB ×3 (04:54→20:26)
[2019-06-03] MEDS: ACCU-CHEK XX (04:58)
[2019-06-03 05:10] LABS: ADD MAN DIFF? NO
[2019-06-03 05:17] LABS: ABNORMAL IP MESSAGE 1; BASOPHILS % 0.5 % (0.0-2.0); HEMATOCRIT 32.2 % (42.0-52.0); HEMOGLOBIN 10.1 g/dl (14.0-18.0); LYMPHOCYTES # 0.5 10^3/ul (0.8-2.9); MEAN CORPUSCULAR HEMOGLOBIN 27.8 pg (29.0-33.0); MEAN CORPUSCULAR HGB CONC 31.4 g/dl (32.0-37.0); MEAN CORPUSCULAR VOLUME 88.7 fl (82.0-101.0); MEAN PLATELET VOLUME 9.4 fl (7.4-10.4); MONOCYTE # 0.2 10^3/ul (0.3-0.9); MONOCYTES % 3.6 % (0.0-11.0); NEUTROPHIL # 3.5 10^3/ul (1.6-7.5); NEUTROPHILS % 84.2 % (39.0-77.0); PLATELET COUNT 333 10^3/UL (140-415); POSITIVE DIFF @See below; RED BLOOD COUNT 3.63 10^6/ul (4.70-6.10); RED CELL DISTRIBUTION WIDTH 12.5 % (11.5-14.5)
[2019-06-03 05:17] LABS: WHITE BLOOD COUNT 4.2 10^3/ul (4.8-10.8)
[2019-06-03 05:58] LABS: PHOSPHORUS 3.8 mg/dl (2.5-4.9)
[2019-06-03 05:58] LABS: MAGNESIUM 2.3 mg/dl (1.7-2.5)
[2019-06-03 06:27] LABS: ANION GAP 9 (5-13); BLOOD UREA NITROGEN 31 mg/dl (7-20); CALCIUM 8.3 mg/dl (8.4-10.2); CARBON DIOXIDE 25 mmol/L (21-31); CHLORIDE 106 mmol/L (97-110); CREATININE 1.12 mg/dl (0.61-1.24); Estimated GFR > 60 mL/min (>60); GLUCOSE 317 mg/dl (70-220); POTASSIUM 4.4 mmol/L (3.5-5.1); SODIUM 140 mmol/L (135-144)
[2019-06-03] MEDS: hydrALAzine 20 MG INJ IV (06:30)
[2019-06-03 08:45] LABS: HEMOGLOBIN A1C 7.9 % (0-5.9)
[2019-06-03] MEDS: FERROUS SULFATE (EC) 325 MG TAB PO (20:26)
[2019-06-03] MEDS: INSULIN GLARGINE [LANTus] (100 UNITS/ML) SYG SC (20:35)
[2019-06-03] MEDS: HYDROCODONE/APAP (10/325) TAB PO (20:42)
[2019-06-04] MEDS: HYDROCODONE/APAP (10/325) TAB PO (01:05)
[2019-06-04] MEDS: ACCU-CHEK XX (02:00)
[2019-06-04] MEDS: VANCOMYCIN 1 GM (PMX) 250 ML IVPB ×2 (04:39→13:07)
[2019-06-04 05:23] LABS: ADD MAN DIFF? NO
[2019-06-04 05:32] LABS: BASOPHILS % 0.5 % (0.0-2.0); EOSINOPHILS # 0.1 10^3/ul (0.0-0.5); EOSINOPHILS % 1.6 % (0.0-7.0); HEMATOCRIT 28.6 % (42.0-52.0); HEMOGLOBIN 9.2 g/dl (14.0-18.0); LYMPHOCYTES # 1.6 10^3/ul (0.8-2.9); LYMPHOCYTES % 25.5 % (15.0-51.0); MEAN CORPUSCULAR HEMOGLOBIN 28.6 pg (29.0-33.0); MEAN CORPUSCULAR HGB CONC 32.2 g/dl (32.0-37.0); MEAN CORPUSCULAR VOLUME 88.8 fl (82.0-101.0); MEAN PLATELET VOLUME 9.5 fl (7.4-10.4); MONOCYTE # 0.5 10^3/ul (0.3-0.9); MONOCYTES % 8.2 % (0.0-11.0); NEUTROPHILS % 63.6 % (39.0-77.0); PLATELET COUNT 352 10^3/UL (140-415); RED BLOOD COUNT 3.22 10^6/ul (4.70-6.10); RED CELL DISTRIBUTION WIDTH 12.7 % (11.5-14.5)
[2019-06-04 05:32] LABS: WHITE BLOOD COUNT 6.2 10^3/ul (4.8-10.8)
[2019-06-04 06:11] LABS: PHOSPHORUS 3.4 mg/dl (2.5-4.9)
[2019-06-04 06:11] LABS: MAGNESIUM 2.1 mg/dl (1.7-2.5)
[2019-06-04 06:14] LABS: ANION GAP 6 (5-13); BLOOD UREA NITROGEN 35 mg/dl (7-20); CALCIUM 8.3 mg/dl (8.4-10.2); CARBON DIOXIDE 27 mmol/L (21-31); CHLORIDE 106 mmol/L (97-110); CREATININE 1.11 mg/dl (0.61-1.24); Estimated GFR > 60 mL/min (>60); GLUCOSE 176 mg/dl (70-220); POTASSIUM 3.7 mmol/L (3.5-5.1); SODIUM 139 mmol/L (135-144)
[2019-06-04] MEDS: INSULIN ASPART [NOVOLOG] 3 ML PEN SC ×7 (07:50→20:50)
[2019-06-04] MEDS: FERROUS SULFATE (EC) 325 MG TAB PO ×2 (08:55→20:49)
[2019-06-04] MEDS: INSULIN GLARGINE [LANTus] (100 UNITS/ML) SYG SC (20:00)
[2019-06-05] MEDS: ACCU-CHEK XX (02:00)
[2019-06-05 06:41] LABS: ADD MAN DIFF? NO
[2019-06-05 06:58] LABS: BASOPHIL # 0.1 10^3/ul (0.0-0.1); BASOPHILS % 1.2 % (0.0-2.0); EOSINOPHILS # 0.2 10^3/ul (0.0-0.5); EOSINOPHILS % 3.4 % (0.0-7.0); HEMATOCRIT 29.9 % (42.0-52.0); HEMOGLOBIN 9.5 g/dl (14.0-18.0); LYMPHOCYTES # 1.5 10^3/ul (0.8-2.9); LYMPHOCYTES % 29.7 % (15.0-51.0); MEAN CORPUSCULAR HEMOGLOBIN 28.5 pg (29.0-33.0); MEAN CORPUSCULAR HGB CONC 31.8 g/dl (32.0-37.0); MEAN CORPUSCULAR VOLUME 89.8 fl (82.0-101.0); MEAN PLATELET VOLUME 9.3 fl (7.4-10.4); MONOCYTE # 0.6 10^3/ul (0.3-0.9); NEUTROPHIL # 2.7 10^3/ul (1.6-7.5); NEUTROPHILS % 54.1 % (39.0-77.0); PLATELET COUNT 354 10^3/UL (140-415); RED BLOOD COUNT 3.33 10^6/ul (4.70-6.10); RED CELL DISTRIBUTION WIDTH 12.9 % (11.5-14.5)
[2019-06-05] MEDS ORDERED: VANCOMYCIN 1 GM (PMX) 250 ML IVPB (07:00)
[2019-06-05 07:18] LABS: ANION GAP 5 (5-13); BLOOD UREA NITROGEN 28 mg/dl (7-20); CALCIUM 8.3 mg/dl (8.4-10.2); CARBON DIOXIDE 28 mmol/L (21-31); CHLORIDE 108 mmol/L (97-110); CREATININE 1.04 mg/dl (0.61-1.24); Estimated GFR > 60 mL/min (>60); GLUCOSE 126 mg/dl (70-220); SODIUM 141 mmol/L (135-144)
[2019-06-05] MEDS ORDERED: VANCOMYCIN IV PER PHARMACY XX (07:30)
[2019-06-05] MEDS: INSULIN ASPART [NOVOLOG] 3 ML PEN SC ×7 (07:55→20:15)
[2019-06-05] MEDS: FERROUS SULFATE (EC) 325 MG TAB PO ×2 (08:01→20:14)
[2019-06-05 08:56] LABS: VANCOMYCIN,RANDOM 23.3 ug/ml
[2019-06-05] MEDS: VANCOMYCIN 1 GM 250 ML IVPB (12:31)
[2019-06-05 15:46] LABS: AMPHETAMINE/METHAMPHETAMINE Negative (NEGATIVE); BARBITURATES Negative (NEGATIVE); BENZODIAZEPINES Negative (NEGATIVE); CANNABINOIDS Negative (NEGATIVE); COCAINE Negative (NEGATIVE)
[2019-06-05 15:48] LABS: OPIATES Positive (NEGATIVE)
[2019-06-05] MEDS: PATIENT'S OWN MEDICATION XX (20:15)
[2019-06-05] MEDS: INSULIN GLARGINE [LANTus] (100 UNITS/ML) SYG SC (20:49)
[2019-06-06] MEDS: ACCU-CHEK XX (01:41)
[2019-06-06 02:50] LABS: ANION GAP 4 (5-13); BLOOD UREA NITROGEN 21 mg/dl (7-20); CALCIUM 8.3 mg/dl (8.4-10.2); CARBON DIOXIDE 28 mmol/L (21-31); CHLORIDE 106 mmol/L (97-110); CREATININE 1.08 mg/dl (0.61-1.24); Estimated GFR > 60 mL/min (>60); GLUCOSE 123 mg/dl (70-220); MAGNESIUM 1.8 mg/dl (1.7-2.5); POTASSIUM 3.9 mmol/L (3.5-5.1); SODIUM 138 mmol/L (135-144)
[2019-06-06 03:35] LABS: THYROID STIMULATING HORMONE 0.423 MIU/L (0.465-4.680)
[2019-06-06] MEDS: MAGNESIUM SULFATE 2 GM/50 ML 50 ML IVPB (03:39)
[2019-06-06 06:28] LABS: ADD MAN DIFF? NO
[2019-06-06 06:34] LABS: BASOPHILS % 0.8 % (0.0-2.0); EOSINOPHILS # 0.1 10^3/ul (0.0-0.5); EOSINOPHILS % 2.2 % (0.0-7.0); HEMATOCRIT 28.7 % (42.0-52.0); LYMPHOCYTES # 1.3 10^3/ul (0.8-2.9); LYMPHOCYTES % 25.2 % (15.0-51.0); MEAN CORPUSCULAR HEMOGLOBIN 28.1 pg (29.0-33.0); MEAN CORPUSCULAR HGB CONC 31.4 g/dl (32.0-37.0); MEAN CORPUSCULAR VOLUME 89.7 fl (82.0-101.0); MEAN PLATELET VOLUME 9.2 fl (7.4-10.4); MONOCYTE # 0.5 10^3/ul (0.3-0.9); MONOCYTES % 9.8 % (0.0-11.0); NEUTROPHIL # 3.1 10^3/ul (1.6-7.5); PLATELET COUNT 345 10^3/UL (140-415); RED CELL DISTRIBUTION WIDTH 12.5 % (11.5-14.5)
[2019-06-06 06:34] LABS: WHITE BLOOD COUNT 5.1 10^3/ul (4.8-10.8)
[2019-06-06 06:52] LABS: ALANINE AMINOTRANSFERASE 19 IU/L (13-69); ALBUMIN 2.5 g/dl (3.3-4.9); ALKALINE PHOSPHATASE 93 IU/L (42-121); ANION GAP 6 (5-13); ASPARTATE AMINO TRANSFERASE 12 IU/L (15-46); BILIRUBIN,INDIRECT 0.3 mg/dl (0-1.1); BILIRUBIN,TOTAL 0.3 mg/dl (0.2-1.3); BLOOD UREA NITROGEN 21 mg/dl (7-20); CALCIUM 8.2 mg/dl (8.4-10.2); CARBON DIOXIDE 27 mmol/L (21-31); CHLORIDE 108 mmol/L (97-110); CREATININE 1.06 mg/dl (0.61-1.24); Estimated GFR > 60 mL/min (>60); GLUCOSE 113 mg/dl (70-220); MAGNESIUM 2.2 mg/dl (1.7-2.5); PHOSPHORUS 3.2 mg/dl (2.5-4.9); POTASSIUM 4.3 mmol/L (3.5-5.1); SODIUM 141 mmol/L (135-144); TOTAL PROTEIN 5.5 g/dl (6.1-8.1)
[2019-06-06 07:21] LABS: THYROID STIMULATING HORMONE 0.391 MIU/L (0.465-4.680)
[2019-06-06] MEDS: INSULIN ASPART [NOVOLOG] 3 ML PEN SC ×7 (07:55→20:29)
[2019-06-06] MEDS: PATIENT'S OWN MEDICATION XX ×2 (09:00→20:29)
[2019-06-06] MEDS: FERROUS SULFATE (EC) 325 MG TAB PO ×2 (09:41→20:29)
[2019-06-06] MEDS: ENOXAPARIN 40 MG/0.4 ML SYG SC (10:37)
[2019-06-06] MEDS: VANCOMYCIN 1 GM 250 ML IVPB (13:21)
[2019-06-06] MEDS: INSULIN GLARGINE [LANTus] (100 UNITS/ML) SYG SC (21:11)
[2019-06-06] MEDS: CEFAZOLIN 1 GM/50 ML (PMX) 50 ML IVPB (21:51)
[2019-06-07] MEDS: ACCU-CHEK XX (01:14)
[2019-06-07] MEDS: CEFAZOLIN 1 GM/50 ML (PMX) 50 ML IVPB ×3 (05:48→21:12)
[2019-06-07 06:08] LABS: ADD MAN DIFF? NO
[2019-06-07 06:10] LABS: WHITE BLOOD COUNT 5.7 10^3/ul (4.8-10.8)
[2019-06-07 06:10] LABS: BASOPHIL # 0.1 10^3/ul (0.0-0.1); BASOPHILS % 1.1 % (0.0-2.0); EOSINOPHILS # 0.1 10^3/ul (0.0-0.5); EOSINOPHILS % 2.1 % (0.0-7.0); HEMATOCRIT 28.3 % (42.0-52.0); HEMOGLOBIN 9.1 g/dl (14.0-18.0); LYMPHOCYTES # 1.8 10^3/ul (0.8-2.9); LYMPHOCYTES % 31.8 % (15.0-51.0); MEAN CORPUSCULAR HEMOGLOBIN 28.2 pg (29.0-33.0); MEAN CORPUSCULAR HGB CONC 32.2 g/dl (32.0-37.0); MEAN CORPUSCULAR VOLUME 87.6 fl (82.0-101.0); MEAN PLATELET VOLUME 9.4 fl (7.4-10.4); MONOCYTE # 0.6 10^3/ul (0.3-0.9); MONOCYTES % 11.2 % (0.0-11.0); NEUTROPHILS % 52.6 % (39.0-77.0); PLATELET COUNT 338 10^3/UL (140-415); RED BLOOD COUNT 3.23 10^6/ul (4.70-6.10); RED CELL DISTRIBUTION WIDTH 12.7 % (11.5-14.5)
[2019-06-07 06:34] LABS: ANION GAP 4 (5-13); BLOOD UREA NITROGEN 20 mg/dl (7-20); CALCIUM 8.3 mg/dl (8.4-10.2); CARBON DIOXIDE 30 mmol/L (21-31); CHLORIDE 104 mmol/L (97-110); CREATININE 1.13 mg/dl (0.61-1.24); Estimated GFR > 60 mL/min (>60); GLUCOSE 99 mg/dl (70-220); POTASSIUM 3.9 mmol/L (3.5-5.1); SODIUM 138 mmol/L (135-144)
[2019-06-07] MEDS: INSULIN ASPART [NOVOLOG] 3 ML PEN SC ×7 (07:55→21:00)
[2019-06-07] MEDS: PATIENT'S OWN MEDICATION XX ×2 (09:00→21:00)
[2019-06-07] MEDS: FERROUS SULFATE (EC) 325 MG TAB PO ×2 (09:28→21:12)
[2019-06-07] MEDS: ENOXAPARIN 40 MG/0.4 ML SYG SC (09:37)
[2019-06-07] MEDS: METOPROLOL 25 MG TAB PO ×2 (14:06→21:12)
[2019-06-07] MEDS: INSULIN GLARGINE [LANTus] (100 UNITS/ML) SYG SC (21:27)
[2019-06-08] MEDS: ACCU-CHEK XX (00:31)
[2019-06-08 05:14] LABS: ADD MAN DIFF? NO
[2019-06-08 05:17] LABS: BASOPHIL # 0.1 10^3/ul (0.0-0.1); BASOPHILS % 0.9 % (0.0-2.0); EOSINOPHILS # 0.2 10^3/ul (0.0-0.5); EOSINOPHILS % 2.9 % (0.0-7.0); HEMATOCRIT 28.6 % (42.0-52.0); LYMPHOCYTES # 1.7 10^3/ul (0.8-2.9); LYMPHOCYTES % 29.5 % (15.0-51.0); MEAN CORPUSCULAR HEMOGLOBIN 27.9 pg (29.0-33.0); MEAN CORPUSCULAR HGB CONC 31.5 g/dl (32.0-37.0); MEAN CORPUSCULAR VOLUME 88.5 fl (82.0-101.0); MEAN PLATELET VOLUME 9.3 fl (7.4-10.4); MONOCYTE # 0.6 10^3/ul (0.3-0.9); NEUTROPHIL # 3.2 10^3/ul (1.6-7.5); NEUTROPHILS % 54.8 % (39.0-77.0); PLATELET COUNT 373 10^3/UL (140-415); RED BLOOD COUNT 3.23 10^6/ul (4.70-6.10); RED CELL DISTRIBUTION WIDTH 12.5 % (11.5-14.5)
[2019-06-08 05:17] LABS: WHITE BLOOD COUNT 5.8 10^3/ul (4.8-10.8)
[2019-06-08] MEDS: CEFAZOLIN 1 GM/50 ML (PMX) 50 ML IVPB ×3 (05:25→17:34)
[2019-06-08 05:34] LABS: ANION GAP 5 (5-13); BLOOD UREA NITROGEN 14 mg/dl (7-20); CALCIUM 8.2 mg/dl (8.4-10.2); CARBON DIOXIDE 31 mmol/L (21-31); CHLORIDE 103 mmol/L (97-110); CREATININE 1.07 mg/dl (0.61-1.24); Estimated GFR > 60 mL/min (>60); GLUCOSE 108 mg/dl (70-220); POTASSIUM 3.6 mmol/L (3.5-5.1); SODIUM 139 mmol/L (135-144)
[2019-06-08 05:39] LABS: MAGNESIUM 1.8 mg/dl (1.7-2.5)
[2019-06-08 05:39] LABS: PHOSPHORUS 3.2 mg/dl (2.5-4.9)
[2019-06-08] MEDS: METOPROLOL 25 MG TAB PO ×2 (08:33→19:57)
[2019-06-08] MEDS: FERROUS SULFATE (EC) 325 MG TAB PO ×2 (08:33→19:56)
[2019-06-08] MEDS: ENOXAPARIN 40 MG/0.4 ML SYG SC (08:37)
[2019-06-08] MEDS: PATIENT'S OWN MEDICATION XX (09:00)
[2019-06-08] MEDS: INSULIN ASPART [NOVOLOG] 3 ML PEN SC ×7 (09:00→19:56)
[2019-06-08] MEDS: LIDOCAINE 1% (MPF) 5 ML VIAL SC (15:45)
[2019-06-08] MEDS: INSULIN GLARGINE [LANTus] (100 UNITS/ML) SYG SC (20:00)
== END 2019-06-08 20:15 | disposition home health service (06) | DRG 487 ==
LOC: SDS 10:07 → TEL 06-04 21:04 → MS1 06-08 00:01 → SDS 10:07 → REC 15:01 → MS1 18:19
PROVIDERS: Specialist
PROC: 0SBC4ZZ Excision of Right Knee Joint, Percutaneous Endoscopic Approach (ICD-10-PCS; principal; 2019-06-02 13:41)
PROC: 0S9C0ZX Drainage of Right Knee Joint, Open Approach, Diagnostic (ICD-10-PCS; 2019-06-02 13:41)
PROC: 02HV33Z Insertion of Infusion Device into Superior Vena Cava, Percutaneous Approach (ICD-10-PCS; 2019-06-02 15:34)
PROC: B548ZZA Ultrasonography of Superior Vena Cava, Guidance (ICD-10-PCS; 2019-06-02 15:34)
DX: M00.061 Staphylococcal arthritis, right knee (principal); E11.8 Type 2 diabetes mellitus with unspecified complications; M17.11 Unilateral primary osteoarthritis, right knee; I10 Essential (primary) hypertension; E78.5 Hyperlipidemia, unspecified; B95.61 Methicillin susceptible Staphylococcus aureus infection as the cause of diseases classified elsewhere
CPT/HCPCS: 36569; 71045; 76937; 80048; 80053; 80076; 80202; 80307; 82962; 83036; 83735; 84100; 84443; 85025; 85610; 85730; 87040-91; 87070; 93306

== ENCOUNTER 2019-06-15 06:08 | Inpatient (IN) | payer OTHER ==
[2019-06-15] MEDS ORDERED: SUCCINYLCHOLINE CHLORIDE 100 MG/5 ML SYG IV (07:39)
[2019-06-15] MEDS ORDERED: PROPOFOL 20 ML (07:39)
[2019-06-15] MEDS ORDERED: MIDAZOLAM 1 MG/ML 2 ML INJ (07:39)
[2019-06-15] MEDS ORDERED: ONDANSETRON 4 MG INJ (07:40)
[2019-06-15] MEDS ORDERED: METOCLOPRAMIDE 10 MG INJ (07:40)
[2019-06-15] MEDS ORDERED: ROPIVACAINE 0.2% 20 ML VIAL (07:40)
[2019-06-15] MEDS: SOD CHLORIDE 0.9% 1,000 ML IV (07:46)
[2019-06-15] MEDS ORDERED: FAMOTIDINE 20 MG INJ (08:25)
[2019-06-15] MEDS ORDERED: FENTAnyl 50 MCG/ML VIAL (08:26)
[2019-06-15] MEDS ORDERED: PHENYLephrine (100 MCG/ML) 10ML SYG ×2 (08:28→08:44)
[2019-06-15] MEDS: BACITRACIN 50000 UNITS INJ (08:44)
[2019-06-15] MEDS: POLYMYXIN/BACITRACIN 1L IRRIG (08:45)
[2019-06-15] MEDS: POLYMYXIN B 500000 UNIT INJ (08:45)
[2019-06-15] MEDS: VANCOMYCIN 1 GM INJ ×2 (08:46)
[2019-06-15] MEDS ORDERED: morphine 2 MG INJ IV ×3 (09:00→10:00)
[2019-06-15] MEDS ORDERED: OXYCODONE/ACETAMINOPHEN (5/325) TAB PO ×2 (09:00)
[2019-06-15] MEDS ORDERED: MEPERIDINE 25 MG INJ IV (09:00)
[2019-06-15] MEDS ORDERED: hydrALAzine 20 MG INJ IV (09:00)
[2019-06-15] MEDS ORDERED: DIPHENHYDRAMINE 50 MG INJ IV (09:00)
[2019-06-15] MEDS ORDERED: HYDROmorphONE 1 MG/5 ML IV SYRINGE IV ×3 (09:00)
[2019-06-15] MEDS ORDERED: ONDANSETRON 4 MG INJ IV ×2 (09:00→10:00)
[2019-06-15] MEDS ORDERED: LABETALOL HCL 20MG INJ IV (09:00)
[2019-06-15] MEDS ORDERED: FENTAnyl 50 MCG/ML VIAL IV ×2 (09:00)
[2019-06-15] MEDS ORDERED: ALBUTEROL 0.083% (NEB) 2.5 MG/3 ML AMP HHN (09:00)
[2019-06-15] MEDS: EPHEDrine 25 MG/5 ML SYG IV ×2 (10:11→12:38)
[2019-06-15 13:15] LABS: HEMATOCRIT 23.9 % (42.0-52.0); HEMOGLOBIN 7.4 g/dl (14.0-18.0)
[2019-06-15] MEDS: HYDROCODONE/APAP (5/325) TAB PO (15:50)
[2019-06-15] MEDS ORDERED: GLUCAGON 1 MG INJ IM (16:00)
[2019-06-15] MEDS ORDERED: DEXTROSE 50% 50 ML SYRINGE IV ×2 (16:00)
[2019-06-15] MEDS ORDERED: GLUCOSE GEL 15 GRAM TUBE BUCCAL (16:00)
[2019-06-15] MEDS ORDERED: GLUCOSE GEL 15 GRAM TUBE PO ×2 (16:00)
[2019-06-15] MEDS: INSULIN ASPART [NOVOLOG] 3 ML PEN SC ×2 (17:57→21:00)
[2019-06-15] MEDS: CEFAZOLIN 2 GM/50 ML (PMX) 50 ML IVPB ×2 (17:57→21:04)
[2019-06-15] MEDS: ACCU-CHEK XX (22:25)
[2019-06-16] MEDS: CEFAZOLIN 2 GM/50 ML (PMX) 50 ML IVPB (05:19)
[2019-06-16 06:15] LABS: WHITE BLOOD COUNT 6.3 10^3/ul (4.8-10.8)
[2019-06-16 06:15] LABS: ABNORMAL IP MESSAGE 1; HEMATOCRIT 20.2 % (42.0-52.0); MEAN CORPUSCULAR HEMOGLOBIN 28.1 pg (29.0-33.0); MEAN CORPUSCULAR HGB CONC 31.2 g/dl (32.0-37.0); MEAN CORPUSCULAR VOLUME 90.2 fl (82.0-101.0); MEAN PLATELET VOLUME 9.8 fl (7.4-10.4); PLATELET COUNT 217 10^3/UL (140-415); POSITIVE DIFF @See below; RED BLOOD COUNT 2.24 10^6/ul (4.70-6.10)
[2019-06-16 06:38] LABS: ADD MAN DIFF? YES; HEMOGLOBIN 6.3 g/dl (14.0-18.0)
[2019-06-16 07:40] LABS: ANISOCYTOSIS 1+ (0-0); BASOPHIL #M 0.1 10^3/ul (0.0-0.0); BASOPHILS % (M) 3 % (0-2); BURR CELLS 1+ (0-0); EOSINOPHILS % (M) 1 % (0-7); GIANT THROMBO% (M) 1 % (0-0); HYPOCHROMASIA 1+ (0-0); LYMPHOCYTES % (M) 16 % (15-51); MICROCYTOSIS 1+ (0-0); MONOCYTE #M 0.3 10^3/ul (0.3-0.9); MONOCYTES % (M) 6 % (0-11); PLATELET ESTIMATE NORMAL; POIKILOCYTOSIS 1+ (0-0); POLYCHROMASIA 1+ (0-0); SEGMENTED NEUTROPHILS (M) % 74 % (39-77); SMUDGE%M 4 % (0-0)
[2019-06-16] MEDS: INSULIN ASPART [NOVOLOG] 3 ML PEN SC ×4 (07:50→21:00)
[2019-06-16 14:53] LABS: IMMEDIATE SPIN CROSSMATCH 1 2
[2019-06-16 19:17] LABS: HEMATOCRIT 26.6 % (42.0-52.0); HEMOGLOBIN 8.7 g/dl (14.0-18.0)
[2019-06-16 19:44] LABS: IRON 15 ug/dl (35-150)
[2019-06-16 19:53] LABS: % IRON SATURATION 8 % SAT (22-52); TOTAL IRON BINDING CAPACITY 184 ug/dl (241-421)
[2019-06-16 20:00] LABS: ALANINE AMINOTRANSFERASE 18 IU/L (13-69); ALBUMIN 2.6 g/dl (3.3-4.9); ALBUMIN/GLOBULIN RATIO 0.76; ALKALINE PHOSPHATASE 96 IU/L (42-121); ANION GAP 5 (5-13); ASPARTATE AMINO TRANSFERASE 18 IU/L (15-46); BILIRUBIN,INDIRECT 0.5 mg/dl (0-1.1); BILIRUBIN,TOTAL 0.5 mg/dl (0.2-1.3); BLOOD UREA NITROGEN 17 mg/dl (7-20); CALCIUM 7.8 mg/dl (8.4-10.2); CARBON DIOXIDE 28 mmol/L (21-31); CHLORIDE 101 mmol/L (97-110); CREATININE 1.15 mg/dl (0.61-1.24); Estimated GFR > 60 mL/min (>60); GLUCOSE 185 mg/dl (70-220); POTASSIUM 4.3 mmol/L (3.5-5.1); SODIUM 134 mmol/L (135-144)
[2019-06-16] MEDS: ACCU-CHEK XX (22:01)
[2019-06-17 01:11] LABS: HEMATOCRIT 24.9 % (42.0-52.0)
[2019-06-17 06:09] LABS: HEMATOCRIT 24.2 % (42.0-52.0); HEMOGLOBIN 7.7 g/dl (14.0-18.0)
[2019-06-17] MEDS: INSULIN ASPART [NOVOLOG] 3 ML PEN SC ×4 (08:43→21:05)
[2019-06-17] MEDS: CEFTRIAXONE 2 GM/50 ML (PMX) 50 ML IVPB (10:27)
[2019-06-17 11:20] LABS: HEMATOCRIT 24.5 % (42.0-52.0); HEMOGLOBIN 7.9 g/dl (14.0-18.0)
[2019-06-17] MEDS: SOD FERRIC GLUC COMPLX 125 MG in SOD CHLORIDE 0.9% 100 ML IVPB (13:42)
[2019-06-17 16:50] LABS: HEMATOCRIT 25.3 % (42.0-52.0)
[2019-06-17] MEDS: HYDROCODONE/APAP (5/325) TAB PO (16:52)
[2019-06-17] MEDS: FERROUS SULFATE (EC) 325 MG TAB PO (21:00)
[2019-06-17 23:22] LABS: HEMATOCRIT 23.6 % (42.0-52.0); HEMOGLOBIN 7.5 g/dl (14.0-18.0)
[2019-06-18] MEDS: ACCU-CHEK XX ×2 (02:00→21:31)
[2019-06-18 06:24] LABS: ADD MAN DIFF? NO
[2019-06-18 06:36] LABS: WHITE BLOOD COUNT 6.1 10^3/ul (4.8-10.8)
[2019-06-18 06:36] LABS: BASOPHIL # 0.1 10^3/ul (0.0-0.1); BASOPHILS % 0.8 % (0.0-2.0); EOSINOPHILS # 0.2 10^3/ul (0.0-0.5); EOSINOPHILS % 2.5 % (0.0-7.0); HEMATOCRIT 25.3 % (42.0-52.0); LYMPHOCYTES # 1.2 10^3/ul (0.8-2.9); LYMPHOCYTES % 19.8 % (15.0-51.0); MEAN CORPUSCULAR HEMOGLOBIN 28.7 pg (29.0-33.0); MEAN CORPUSCULAR HGB CONC 31.6 g/dl (32.0-37.0); MEAN CORPUSCULAR VOLUME 90.7 fl (82.0-101.0); MEAN PLATELET VOLUME 9.6 fl (7.4-10.4); MONOCYTE # 0.5 10^3/ul (0.3-0.9); MONOCYTES % 8.3 % (0.0-11.0); NEUTROPHIL # 4.2 10^3/ul (1.6-7.5); NEUTROPHILS % 68.1 % (39.0-77.0); PLATELET COUNT 228 10^3/UL (140-415); RED BLOOD COUNT 2.79 10^6/ul (4.70-6.10); RED CELL DISTRIBUTION WIDTH 12.8 % (11.5-14.5)
[2019-06-18 06:56] LABS: ANION GAP 4 (5-13); BLOOD UREA NITROGEN 16 mg/dl (7-20); CALCIUM 7.9 mg/dl (8.4-10.2); CARBON DIOXIDE 31 mmol/L (21-31); CHLORIDE 101 mmol/L (97-110); CREATININE 1.01 mg/dl (0.61-1.24); Estimated GFR > 60 mL/min (>60); GLUCOSE 153 mg/dl (70-220); POTASSIUM 4.3 mmol/L (3.5-5.1); SODIUM 136 mmol/L (135-144)
[2019-06-18] MEDS: FERROUS SULFATE (EC) 325 MG TAB PO ×2 (08:37→20:42)
[2019-06-18] MEDS: INSULIN ASPART [NOVOLOG] 3 ML PEN SC ×5 (08:38→21:00)
[2019-06-18] MEDS: CEFTRIAXONE 2 GM/50 ML (PMX) 50 ML IVPB (10:41)
[2019-06-18] MEDS: HYDROCODONE/APAP (5/325) TAB PO ×2 (11:53→20:42)
[2019-06-18] MEDS: SOD FERRIC GLUC COMPLX 125 MG in SOD CHLORIDE 0.9% 100 ML IVPB (12:57)
[2019-06-18] MEDS ORDERED: SOD CHLORIDE 0.9% IVPB (17:30)
[2019-06-18] MEDS ORDERED: CEFTRIAXONE IVPB (17:30)
[2019-06-18] MEDS: INSULIN GLARGINE [LANTus] (100 UNITS/ML) SYG SC (21:30)
[2019-06-19 05:42] LABS: ADD MAN DIFF? NO
[2019-06-19 05:53] LABS: BASOPHIL # 0.1 10^3/ul (0.0-0.1); BASOPHILS % 1.2 % (0.0-2.0); EOSINOPHILS # 0.2 10^3/ul (0.0-0.5); EOSINOPHILS % 3.3 % (0.0-7.0); HEMOGLOBIN 7.5 g/dl (14.0-18.0); LYMPHOCYTES # 1.4 10^3/ul (0.8-2.9); LYMPHOCYTES % 27.7 % (15.0-51.0); MEAN CORPUSCULAR HEMOGLOBIN 28.1 pg (29.0-33.0); MEAN CORPUSCULAR HGB CONC 31.3 g/dl (32.0-37.0); MEAN CORPUSCULAR VOLUME 89.9 fl (82.0-101.0); MEAN PLATELET VOLUME 9.5 fl (7.4-10.4); MONOCYTE # 0.4 10^3/ul (0.3-0.9); NEUTROPHIL # 2.9 10^3/ul (1.6-7.5); NEUTROPHILS % 58.6 % (39.0-77.0); PLATELET COUNT 223 10^3/UL (140-415); RED BLOOD COUNT 2.67 10^6/ul (4.70-6.10); RED CELL DISTRIBUTION WIDTH 12.8 % (11.5-14.5)
[2019-06-19 05:53] LABS: WHITE BLOOD COUNT 4.9 10^3/ul (4.8-10.8)
[2019-06-19 06:28] LABS: ANION GAP 2 (5-13); BLOOD UREA NITROGEN 15 mg/dl (7-20); CARBON DIOXIDE 32 mmol/L (21-31); CHLORIDE 101 mmol/L (97-110); CREATININE 0.96 mg/dl (0.61-1.24); Estimated GFR > 60 mL/min (>60); GLUCOSE 131 mg/dl (70-220); POTASSIUM 4.2 mmol/L (3.5-5.1); SODIUM 135 mmol/L (135-144)
[2019-06-19] MEDS: INSULIN ASPART [NOVOLOG] 3 ML PEN SC ×7 (07:50→20:40)
[2019-06-19] MEDS: FERROUS SULFATE (EC) 325 MG TAB PO ×2 (08:22→20:39)
[2019-06-19] MEDS: CEFTRIAXONE IVPB (10:31)
[2019-06-19] MEDS: SOD CHLORIDE 0.9% IVPB (10:31)
[2019-06-19 10:32] LABS: HEMOGLOBIN A1C 7.4 % (0-5.9)
[2019-06-19] MEDS: SOD FERRIC GLUC COMPLX 125 MG in SOD CHLORIDE 0.9% 100 ML IVPB (12:39)
[2019-06-19] MEDS: HYDROCODONE/APAP (5/325) TAB PO ×2 (13:39→20:39)
[2019-06-19 16:29] LABS: OCCULT BLOOD STOOL NEGATIVE (NEGATIVE)
[2019-06-19] MEDS: INSULIN GLARGINE [LANTus] (100 UNITS/ML) SYG SC (20:43)
[2019-06-19] MEDS: ACCU-CHEK XX (20:44)
[2019-06-20 06:04] LABS: ADD MAN DIFF? NO
[2019-06-20 06:13] LABS: BASOPHIL # 0.1 10^3/ul (0.0-0.1); BASOPHILS % 1.4 % (0.0-2.0); EOSINOPHILS # 0.1 10^3/ul (0.0-0.5); EOSINOPHILS % 2.9 % (0.0-7.0); HEMATOCRIT 23.7 % (42.0-52.0); HEMOGLOBIN 7.4 g/dl (14.0-18.0); LYMPHOCYTES # 1.3 10^3/ul (0.8-2.9); LYMPHOCYTES % 30.2 % (15.0-51.0); MEAN CORPUSCULAR HEMOGLOBIN 27.9 pg (29.0-33.0); MEAN CORPUSCULAR HGB CONC 31.2 g/dl (32.0-37.0); MEAN CORPUSCULAR VOLUME 89.4 fl (82.0-101.0); MEAN PLATELET VOLUME 9.3 fl (7.4-10.4); MONOCYTE # 0.4 10^3/ul (0.3-0.9); MONOCYTES % 10.2 % (0.0-11.0); NEUTROPHIL # 2.3 10^3/ul (1.6-7.5); NEUTROPHILS % 55.1 % (39.0-77.0); PLATELET COUNT 242 10^3/UL (140-415); RED BLOOD COUNT 2.65 10^6/ul (4.70-6.10)
[2019-06-20 06:13] LABS: WHITE BLOOD COUNT 4.2 10^3/ul (4.8-10.8)
[2019-06-20 06:31] LABS: PHOSPHORUS 3.6 mg/dl (2.5-4.9)
[2019-06-20 06:31] LABS: MAGNESIUM 1.8 mg/dl (1.7-2.5)
[2019-06-20 06:47] LABS: ANION GAP 3 (5-13); BLOOD UREA NITROGEN 17 mg/dl (7-20); CARBON DIOXIDE 32 mmol/L (21-31); CHLORIDE 100 mmol/L (97-110); CREATININE 1.02 mg/dl (0.61-1.24); Estimated GFR > 60 mL/min (>60); GLUCOSE 105 mg/dl (70-220); SODIUM 135 mmol/L (135-144)
[2019-06-20] MEDS: FERROUS SULFATE (EC) 325 MG TAB PO ×2 (08:51→20:34)
[2019-06-20] MEDS: INSULIN ASPART [NOVOLOG] 3 ML PEN SC ×7 (08:56→20:40)
[2019-06-20] MEDS: SOD CHLORIDE 0.9% IVPB (10:32)
[2019-06-20] MEDS: CEFTRIAXONE IVPB (10:32)
[2019-06-20] MEDS: APIXABAN 5 MG TABLET PO ×2 (13:12→20:34)
[2019-06-20] MEDS: SOD FERRIC GLUC COMPLX 125 MG in SOD CHLORIDE 0.9% 100 ML IVPB (17:52)
[2019-06-20] MEDS: HYDROCODONE/APAP (5/325) TAB PO (18:02)
[2019-06-20] MEDS: ACETAMINOPHEN 325 MG TAB PO (20:34)
[2019-06-20] MEDS: INSULIN GLARGINE [LANTus] (100 UNITS/ML) SYG SC (20:40)
[2019-06-21] MEDS: ACCU-CHEK XX (02:00)
[2019-06-21 05:47] LABS: ADD MAN DIFF? NO
[2019-06-21 05:52] LABS: BASOPHIL # 0.1 10^3/ul (0.0-0.1); BASOPHILS % 1.3 % (0.0-2.0); EOSINOPHILS # 0.1 10^3/ul (0.0-0.5); EOSINOPHILS % 3.2 % (0.0-7.0); HEMATOCRIT 24.4 % (42.0-52.0); HEMOGLOBIN 7.6 g/dl (14.0-18.0); LYMPHOCYTES # 1.3 10^3/ul (0.8-2.9); LYMPHOCYTES % 34.5 % (15.0-51.0); MEAN CORPUSCULAR HGB CONC 31.1 g/dl (32.0-37.0); MEAN PLATELET VOLUME 9.4 fl (7.4-10.4); MONOCYTE # 0.4 10^3/ul (0.3-0.9); MONOCYTES % 11.2 % (0.0-11.0); NEUTROPHIL # 1.8 10^3/ul (1.6-7.5); NEUTROPHILS % 49.3 % (39.0-77.0); PLATELET COUNT 251 10^3/UL (140-415); RED BLOOD COUNT 2.71 10^6/ul (4.70-6.10)
[2019-06-21 05:52] LABS: WHITE BLOOD COUNT 3.7 10^3/ul (4.8-10.8)
[2019-06-21 06:20] LABS: MAGNESIUM 1.8 mg/dl (1.7-2.5)
[2019-06-21 06:20] LABS: PHOSPHORUS 3.7 mg/dl (2.5-4.9)
[2019-06-21 06:38] LABS: ANION GAP 6 (5-13); BLOOD UREA NITROGEN 20 mg/dl (7-20); CARBON DIOXIDE 33 mmol/L (21-31); CHLORIDE 98 mmol/L (97-110); CREATININE 1.24 mg/dl (0.61-1.24); Estimated GFR > 60 mL/min (>60); GLUCOSE 125 mg/dl (70-220); POTASSIUM 3.9 mmol/L (3.5-5.1); SODIUM 137 mmol/L (135-144)
[2019-06-21 07:04] LABS: ADD UMIC YES; UR ASCORBIC ACID NEGATIVE (NEGATIVE); UR BACTERIA FEW /HPF (NONE SEEN); UR BILIRUBIN (Dip) NEGATIVE (NEGATIVE); UR BLOOD (Dip) 2+ mg/dL (NEGATIVE); UR BUDDING YEAST FEW /HPF (NONE SEEN); UR CLARITY SLIGHTLY CLOUDY (CLEAR); UR COLOR YELLOW (YELLOW); UR GLUCOSE (Dip) NEGATIVE (NEGATIVE); UR KETONES (Dip) NEGATIVE (NEGATIVE); UR LEUKOCYTE ESTERASE (Dip) TRACE Leu/ul (NEGATIVE); UR NITRITE (Dip) NEGATIVE (NEGATIVE); UR RBC 2 /HPF (0-5); UR SPECIFIC GRAVITY (Dip) 1.017 (1.003-1.030); UR SQUAMOUS EPITHELIAL CELL FEW /HPF (FEW); UR TOTAL PROTEIN (Dip) NEGATIVE (NEGATIVE); UR UROBILINOGEN (Dip) NEGATIVE (NEGATIVE); UR WBC 26 /HPF (0-5)
[2019-06-21] MEDS: INSULIN ASPART [NOVOLOG] 3 ML PEN SC ×7 (07:50→19:46)
[2019-06-21] MEDS: FERROUS SULFATE (EC) 325 MG TAB PO ×2 (08:44→19:47)
[2019-06-21] MEDS: APIXABAN 5 MG TABLET PO ×2 (08:45→19:47)
[2019-06-21] MEDS: SOD CHLORIDE 0.9% IVPB (10:19)
[2019-06-21] MEDS: CEFTRIAXONE IVPB (10:19)
[2019-06-21] MEDS: SOD FERRIC GLUC COMPLX 125 MG in SOD CHLORIDE 0.9% 100 ML IVPB (12:57)
[2019-06-21] MEDS: HYDROCODONE/APAP (5/325) TAB PO (19:47)
[2019-06-21] MEDS: INSULIN GLARGINE [LANTus] (100 UNITS/ML) SYG SC (19:48)
[2019-06-27] MEDS ORDERED: APIXABAN 5 MG TABLET PO (09:00)
== END 2019-06-21 20:15 | DRG 467 ==
LOC: SDS 06:08 → REC 09:30 → MS1 12:43
PROVIDERS: Specialist
PROC: 0SPC0JZ Removal of Synthetic Substitute from Right Knee Joint, Open Approach (ICD-10-PCS; principal; 2019-06-15 07:30)
PROC: 0SRC0EZ Replacement of Right Knee Joint with Articulating Spacer, Open Approach (ICD-10-PCS; 2019-06-15 07:30)
PROC: 30233N1 Transfusion of Nonautologous Red Blood Cells into Peripheral Vein, Percutaneous Approach (ICD-10-PCS; 2019-06-15 07:54)
DX: T84.53XA Infection and inflammatory reaction due to internal right knee prosthesis, initial encounter (principal); D62 Acute posthemorrhagic anemia; I82.491 Acute embolism and thrombosis of other specified deep vein of right lower extremity; I82.441 Acute embolism and thrombosis of right tibial vein; E78.5 Hyperlipidemia, unspecified; I10 Essential (primary) hypertension; E10.9 Type 1 diabetes mellitus without complications; E61.1 Iron deficiency; Y79.3 Surgical instruments, materials and orthopedic devices (including sutures) associated with adverse incidents; Y83.2 Surgical operation with anastomosis, bypass or graft as the cause of abnormal reaction of the patient, or of later complication, without mention of misadventure at the time of the procedure
CPT/HCPCS: 36430; 71045; 80048; 80053; 81001; 82270; 82962; 83036; 83540; 83735; 84100; 85014; 85018; 85025; 86850; 86900; 86901; 86920; 87040-91; 87070; 87102; 87116; 88300; 93971; 97110; 97116; 97162; 97530